=== PATIENT | male | born 1980 | race Caucasian/White ===

== ENCOUNTER 2018-04-05 17:50 | Inpatient (IN) | END 2018-04-11 15:40 | disposition home or self-care (01) | DRG 553 ==

== ENCOUNTER 2019-01-11 10:14 | Emergency (ER) | payer BC ==
[~2019-01-11] VITALS: Ht 177.8 cm; Wt 81.8 kg
[~2019-01-11 10:14] MED LIST: ALLO100T PO; ASPI-831 PO; ATOR10TA65 PO; BENA10TA4 PO; BISA5TAB6 PO; CIPR500S2 PO; Colchicine PO; DOCU-216 PO; IBUP-1541 PO; METO-335 PO; SPIR25TA PO
[2019-01-11 10:16] VITALS: Ht 177.8 cm; Wt 81.8 kg
--- NOTE | 2019-01-11 10:45 | ERD ---
ER Documentation Chief Complaint Chief Complaint bilateral leg /foot pain ;shortness of breath hx of chf and CVA x 2 HPI 38-year-old man referred here for bilateral foot edema times 2-3 days and right knee swelling. Patient also states he has had intermittent shortness of breath and mild dyspnea on exertion for the last week although he has been able to ambulate and denies shortness of breath while at rest or laying down. He denies paroxysmal nocturnal dyspnea. He states about 2 days ago he was diagnosed with "stroke", no residual deficits and states tarik hole was placed in the scalp to "reduce pressure". Patient denies headache or blurry vision, no chest pain, no vomiting or diarrhea, paresis or paresthesias. Patient has pain to the right knee with ambulation but no redness, no fevers or chills. ROS All systems reviewed and are negative except as per history of present illness. Medications Home Meds Active Scripts Naproxen* (Naproxen*) 500 Mg Tablet, 500 MG PO BID PRN for PAIN, #30 TAB Prov:RAVI CONN MD 01/11/19 Reported Medications Esomeprazole Mag Trihydrate (Nexium) 40 Mg Capsule.dr, 40 MG PO DAILY, #30 CAP 01/11/19 Losartan Potassium* (Losartan Potassium*) 25 Mg Tablet, 25 MG PO DAILY, TAB 01/11/19 Carvedilol* (Carvedilol*) 3.125 Mg Tablet, 3.125 MG PO BID, #60 TAB 01/11/19 Atorvastatin* (Atorvastatin*) 40 Mg Tablet, 40 MG PO QHS, #30 TAB 01/11/19 Spironolactone* (Aldactone*) 25 Mg Tablet, 25 MG PO DAILY, #30 TAB 01/11/19 Furosemide* (Furosemide*) 40 Mg Tablet, 40 MG PO DAILY, TAB 01/11/19 Aspirin (Low Dose Aspirin) 81 Mg Tablet., 81 MG PO DAILY, #30 TAB 01/11/19 Allopurinol* (Allopurinol*) 100 Mg Tablet, 100 MG PO DAILY, TAB 01/11/19 Discontinued Scripts Ciprofloxacin (Ciprofloxacin) 500 Mg/5 Ml [facility].rec, 500 MG PO BID, #14 TAB Prov:BRENDA MARTINEZ MD 04/10/18 [Colchicine] 0.6 MG TAB No Conflict Check, 0.6 MG PO BID for 28 Days, #30 Prov:BRENDA MARTINEZ MD 04/10/18 Allopurinol* (Allopurinol*) 100 Mg Tablet, 100 MG PO DAILY for 28 Days, TAB Prov:BRENDA MARTINEZ MD 04/10/18 Docusate Sodium (Dok) 100 Mg Capsule, 100 MG PO Q12H PRN for CONSTIPATION for 14 Days, CAP Prov:BRENDA MARTINEZ MD 04/10/18 Bisacodyl* (Bisacodyl*) 5 Mg Tablet.dr, 5 MG PO DAILY PRN for CONSTIPATION for 14 Days, #14 Prov:BRENDA MARTINEZ MD 04/10/18 Ibuprofen* (Ibuprofen*) 400 Mg Tablet, 400 MG PO Q6H PRN for PAIN OR TEMP ABOVE 38C for 7 Days, #30 TAB Prov:BRENDA MARTINEZ MD 04/10/18 Aspirin (Aspirin) 81 Mg Chew, 81 MG PO DAILY for 28 Days, #30 TAB Prov:BRENDA MARTINEZ MD 04/10/18 Spironolactone* (Aldactone*) 25 Mg Tablet, 12.5 MG PO DAILY for 28 Days, #30 TAB Prov:BRENDA MARTINEZ MD 04/10/18 Metoprolol Succinate* (Toprol XL*) 25 Mg Tab.sr.24h, 25 MG PO DAILY for 28 Days, #30 Prov:BRENDA MARTINEZ MD 04/10/18 Benazepril Hcl* (Benazepril Hcl*) 10 Mg Tablet, 10 MG PO DAILY for 28 Days, #30 TAB Prov:BRENDA MARTINEZ MD 04/10/18 Atorvastatin (Atorvastatin) 10 Mg Tablet, 10 MG PO HS for 28 Days, #30 TAB Prov:BRENDA MARTINEZ MD 04/10/18 Allergies Allergies: Coded Allergies: No Known Allergy (Unverified , 01/11/19) PMhx/Soc History of nonischemic cardiomyopathy and CHF with a left ventricular ejection fraction of 20%, history of methamphetamine and IV drug abuse, hypertension, peripheral edema, history of LV thrombus, pulmonary hypertension, gallstones, recent TIA but patient states he had a tarik hole drilled into the scalp to "reduce pressure" (hydrocephalus?) History of Surgery: No Hx Neurological Disorder: No Hx Respiratory Disorders: No Hx Cardiac Disorders: Yes (CHF) Hx Psychiatric Problems: No Hx Miscellaneous Medical Probl: No Hx Alcohol Use: No (had ETOH abuse stopped in 2014) Hx Substance Use: Yes (meth ) Hx Tobacco Use: No Physical Exam Vitals Vital Signs Date Temp Pulse Resp B/P (MAP) Pulse Ox O2 O2 Flow FiO2 Time Delivery Rate 01/11/19 98.4 110 24 141/78 97 10:16 (99) Physical Exam GENERAL: Well-developed, well-nourished, afebrile HEENT: Moist mucous membranes, pink conjunctiva, no cervical spine tenderness or step-off deformities, NEURO: Alert and oriented 3, cranial nerves II through XII intact bilaterally, pupils equal round reactive to light, no focal deficits or facial asymmetry, sensation intact distally Strength 5/5 in upper and lower extremities bilaterally CARDIAC: Tachycardic and regular, no murmurs rubs or gallops LUNGS: Crackles at the bases, poor entry, no wheezing or stridor ABDOMEN: Soft nontender, no guarding, no rigidity, no rebound, no psoas sign no obturator sign. SKIN: Warm and dry to touch, no abrasions, contusions, or hematomas, no lacerations, no ecchymosis, no target lesions, and without ulcers EXTREMITIES: No clubbing cyanosis. Soft tissue swelling over the right knee consistent with knee effusion, no soft tissue or skin erythema or induration, calves bilaterally symmetrical, feet reveal 1+ pitting edema PSYCH: Normal affect without agitation or irritability Result Diagram: 01/11/19 1106 01/11/19 1106 Results 24 hrs Laboratory Tests Test 01/11/19 11:06 01/11/19 11:40 White Blood Count 13.2 10^3/ul Red Blood Count 5.14 10^6/ul Hemoglobin 13.9 g/dl Hematocrit 43.1 % Mean Corpuscular Volume 83.9 fl Mean Corpuscular Hemoglobin 27.0 pg Mean Corpuscular Hemoglobin Concent 32.3 g/dl Red Cell Distribution Width 14.1 % Platelet Count 219 10^3/UL Mean Platelet Volume 9.5 fl Immature Granulocytes % 1.700 % Neutrophils % 71.9 % Lymphocytes % 15.1 % Monocytes % 10.0 % Eosinophils % 0.9 % Basophils % 0.4 % Nucleated Red Blood Cells % 0.0 /100WBC Immature Granulocytes # 0.220 10^3/ul Neutrophils # 9.5 10^3/ul Lymphocytes # 2.0 10^3/ul Monocytes # 1.3 10^3/ul Eosinophils # 0.1 10^3/ul Basophils # 0.1 10^3/ul Nucleated Red Blood Cells # 0.0 10^3/ul Sodium Level 141 mmol/L Potassium Level 4.3 mmol/L Chloride Level 102 mmol/L Carbon Dioxide Level 27 mmol/L Anion Gap 12 Blood Urea Nitrogen 13 mg/dl Creatinine 0.64 mg/dl Est Glomerular Filtrat Rate mL/min > 60 mL/min Glucose Level 125 mg/dl Uric Acid 6.1 mg/dl Calcium Level 9.2 mg/dl Total Bilirubin 0.6 mg/dl Direct Bilirubin 0.00 mg/dl Indirect Bilirubin 0.6 mg/dl Aspartate Amino Transf (AST/SGOT) 22 IU/L Alanine Aminotransferase (ALT/SGPT) 28 IU/L Alkaline Phosphatase 101 IU/L Troponin I 0.017 ng/ml B-Type Natriuretic Peptide 646 PG/ML Total Protein 7.7 g/dl Albumin 4.1 g/dl Globulin 3.60 g/dl Albumin/Globulin Ratio 1.13 Lipase 202 U/L Urine Color YELLOW Urine Clarity CLEAR Urine pH 7.0 Urine Specific [place] 1.018 Urine Ketones NEGATIVE mg/dL Urine Nitrite NEGATIVE mg/dL Urine Bilirubin NEGATIVE mg/dL Urine Urobilinogen 1+ mg/dL Urine Leukocyte Esterase NEGATIVE Mesfin/ul Urine Hemoglobin NEGATIVE mg/dL Urine Glucose NEGATIVE mg/dL Urine Total Protein NEGATIVE mg/dl Current Medications Medications Dose Sig/Sherri Start Time Status Last (Trade) Ordered Route PRN Stop Time Admin Dose Reason Admin Furosemide 60 mg ONCE ONCE 01/11/19 DC 01/11/19 (Lasix) IV 11:00 11:28 01/11/19 11:01 Ketorolac 15 mg ONCE STAT 01/11/19 DC 01/11/19 Tromethamine IV 10:49 11:28 (Toradol) 01/11/19 10:51 Procedures/MDM IV line was established patient was placed on physical geographer rhythm strip revealed a sinus tachycardia at 100 bpm with upright P and T waves. Patient was afebrile I administered Toradol 15 mg IV x1, Lasix 60 mg IV x1 EKG performed, read by me revealed a normal sinus rhythm at 99 bpm, normal axis, left ventricular conduction delay QRS duration 102 ms, LVH in precordial leads, diffuse T wave inversions, no concerning ST elevations or depressions noted 1 view chest x-ray performed, read by me reveals cardiomegaly, no acute infiltrates, no edema, no pneumothorax CBC was normal, electrolytes normal, liver function tests normal, troponin negative, BNP low. Uric acid level was low, urinalysis negative for infection. Right knee was wrapped with Daniele bandage for comfort and supportive measures. Patient feels much better and vital signs are normal at this time, his pain has improved and he does not exhibit any signs of dyspnea or decompensated heart failure. Patient does have multiple medical conditions but he feels well and has no active or decompensated disease at the moment. His pain is been con trolled and he will be discharged to follow-up with PMD for continued outpatient management Differential diagnoses considered, included but not limited to acute coronary syndrome, pulmonary embolism, aortic dissection, abdominal aortic aneurysm, sepsis, stroke, meningitis, encephalitis, pneumonia, appendicitis, cholecystitis, bowel obstruction, pyelonephritis, nephrolithiasis, cystitis, as well as metabolic, hematologic, and electrolyte abnormalities. As well as abscess, cellulitis, fractures, and dislocations. Patient feels much better at this time, and vital signs are normal, symptoms have improved. I did give strict instructions to return to the ED if symptoms continue or worsen, patient will otherwise follow-up with primary care physician. Patient understood instructions and agreed to plan. Disclaimer: Inadvertent spelling and grammatical errors are likely due to EHR/dictation software use and do not reflect on the overall quality of patient care. Also, please note that the electronic time recorded on this note does not necessarily reflect the actual time of the patient encounter. Departure Diagnosis: Primary Impression: CHF (congestive heart failure) Heart failure type: combined systolic and diastolic Heart failure chronicity: acute Qualified Codes: I50.41 - Acute combined systolic (congestive) and diastolic (congestive) heart failure Additional Impression: Knee effusion, right Condition: Good RAVI CONN MD Jan 11, 2019 10:45
[2019-01-11] MEDS ORDERED: KETOROLAC 15 MG INJ IV STA (10:49)
[2019-01-11] MEDS ORDERED: FUROSEMIDE 40 MG INJ IV ONE (11:00)
[2019-01-11] MEDS ORDERED: ALLO100T PO (11:11)
[2019-01-11] MEDS ORDERED: ASPI81TA52 PO (11:11)
[2019-01-11] MEDS ORDERED: SPIR25TA PO (11:11)
[2019-01-11] MEDS ORDERED: FURO40TA4 PO (11:11)
[2019-01-11] MEDS ORDERED: LOSA25TA12 PO (11:12)
[2019-01-11] MEDS ORDERED: CARV3.1260 PO (11:12)
[2019-01-11] MEDS ORDERED: ATOR40TA68 PO (11:12)
[2019-01-11] MEDS ORDERED: ESOM40CA PO (11:13)
[2019-01-11] MEDS ORDERED: NAPR-688 PO (12:30)
[2019-01-11 12:57] VITALS: BP 126/89; PULSE 97; RESP 18
== END 2019-01-11 12:59 | disposition home or self-care (01) ==
LOC: E/R 10:14
DX: I50.41 Acute combined systolic (congestive) and diastolic (congestive) heart failure (principal); M25.461 Effusion, right knee; I10 Essential (primary) hypertension; Z79.82 Long term (current) use of aspirin; Z86.73 Personal history of transient ischemic attack (TIA), and cerebral infarction without residual deficits
CPT/HCPCS: 36415; 71045; 80053; 81003; 83690; 83880; 84484; 84560; 85025; 93005; 96374; 96375; J1885; J1940; Z7502

== ENCOUNTER 2019-01-20 08:56 | Emergency (ER) | payer BC ==
[~2019-01-20] VITALS: Ht 165.1 cm; Wt 95.0 kg
[~2019-01-20 08:56] MED LIST changes: -ASPI-831 PO; +ASPI81TA52 PO; -ATOR10TA65 PO; +ATOR40TA68 PO; -BENA10TA4 PO; -BISA5TAB6 PO; +CARV3.1260 PO; -CIPR500S2 PO; -Colchicine PO; -DOCU-216 PO; +ESOM40CA PO; +FURO40TA4 PO; -IBUP-1541 PO; +LOSA25TA12 PO; -METO-335 PO; +NAPR-688 PO
[2019-01-20 09:02] VITALS: Ht 165.1 cm; Wt 95.0 kg
[2019-01-20] MEDS ORDERED: FUROSEMIDE 40 MG INJ IV STA (09:36)
[2019-01-20] MEDS ORDERED: DIPHENHYDRAMINE 50 MG INJ IV STA (09:36)
[2019-01-20] MEDS ORDERED: DEXAMETHASONE 10 MG/ML 1 ML INJ IV ONE (10:00)
--- NOTE | 2019-01-20 10:41 | ERD ---
ER Documentation Chief Complaint Chief Complaint Complains of a cough with SOB Hx of CHF HPI 38-year-old male with multiple medical problems including renal insufficiency, CHF secondary to polysubstance abuse and drug induced cardiomyopathy as well as prior stroke. The patient presents with a multitude of different complaints. They include the following. 1. 24 hours of a rash that is urticarial pruritic to the entirety of his body. No fevers or chills during this timeframe. No new medications or detergents noted. He denies any lip swelling or tongue swelling or difficulty breathing. 2. Mild headache that is occipital, not present currently. Gradual in onset. He is concerned about prior stroke and would like CT imaging. He denies any slurred speech or motor deficit. 3. Shortness of breath. He describes mild lower extremity bilateral swelling and mild shortness of breath that is worse when laying flat. Denies any chest pain or pressure. Symptoms are extremely mild. He had recent hospitalization for CHF exacerbation. The patient is currently taking Lasix. He describes compliance with his medication regimen. ROS All systems reviewed and are negative except as per history of present illness. Medications Home Meds Active Scripts Hydroxyzine Hcl* (Atarax*) 25 Mg Tab, 25 MG PO Q6H PRN for ITCHING, #20 TAB Prov:RAKESH WILLIS MD 01/20/19 Reported Medications Esomeprazole Mag Trihydrate (Nexium) 40 Mg Capsule.dr, 40 MG PO DAILY, #30 CAP 01/11/19 Losartan Potassium* (Losartan Potassium*) 25 Mg Tablet, 25 MG PO DAILY, TAB 01/11/19 Carvedilol* (Carvedilol*) 3.125 Mg Tablet, 3.125 MG PO BID, #60 TAB 01/11/19 Atorvastatin* (Atorvastatin*) 40 Mg Tablet, 40 MG PO QHS, #30 TAB 01/11/19 Spironolactone* (Aldactone*) 25 Mg Tablet, 25 MG PO DAILY, #30 TAB 01/11/19 Furosemide* (Furosemide*) 40 Mg Tablet, 40 MG PO DAILY, TAB 01/11/19 Aspirin (Low Dose Aspirin) 81 Mg Tablet.dr, 81 MG PO DAILY, #30 TAB 01/11/19 Allopurinol* (Allopurinol*) 100 Mg Tablet, 100 MG PO DAILY, TAB 01/11/19 Discontinued Scripts Naproxen* (Naproxen*) 500 Mg Tablet, 500 MG PO BID PRN for PAIN, #30 TAB Prov:RAVI CONN MD 01/11/19 Allergies Allergies: Coded Allergies: No Known Allergy (Unverified , 01/20/19) PMhx/Soc History of Surgery: No Anesthesia Reaction: No Hx Neurological Disorder: No Hx Respiratory Disorders: No Hx Cardiac Disorders: Yes (CHF) Hx Psychiatric Problems: No Hx Miscellaneous Medical Probl: No Hx Alcohol Use: No (had ETOH abuse stopped in 2014) Hx Substance Use: Yes (meth ) Hx Tobacco Use: No Smoking Status: Never smoker FmHx Family History: No diabetes Physical Exam Vitals Vital Signs Date Temp Pulse Resp B/P (MAP) Pulse Ox O2 O2 Flow FiO2 Time Delivery Rate 01/20/19 98.2 88 18 112/67 98 Room Air 12:27 (82) 01/20/19 90 18 105/79 98 Room Air 11:00 (88) 01/20/19 98 18 136/98 98 Room Air 09:33 (111) 01/20/19 98.7 104 20 122/72 95 09:02 (89) Physical Exam General: Well developed, well nourished, no acute distress Head: Normocephalic, atraumatic. Eyes: Pupils equally reactive, EOM intact ENT: Moist mucous membranes, no lip/tongue swelling Neck: Supple, no lymphadenopathy Respiratory: Lungs clear bilaterally, no distress, no rales at the bases bilaterally Cardiovascular: RRR, no murmurs, rubs, or gallops Abdominal: Soft, non-tender, non-distended, no peritoneal signs : Deferred MSK: No edema, no unilateral swelling, 5/5 strength Neurologic: Alert and oriented, moving all extremities, normal speech, no focal weakness, no cerebellar signs Skin: Urticarial rash to the extremities and trunk Psych: Normal mood Result Diagram: 01/20/1948 01/20/1947 Results 24 hrs Laboratory Tests Test 01/20/19 09:48 White Blood Count 16.7 10^3/ul Red Blood Count 5.62 10^6/ul Hemoglobin 15.4 g/dl Hematocrit 46.7 % Mean Corpuscular Volume 83.1 fl Mean Corpuscular Hemoglobin 27.4 pg Mean Corpuscular Hemoglobin Concent 33.0 g/dl Red Cell Distribution Width 14.1 % Platelet Count 416 10^3/UL Mean Platelet Volume 9.3 fl Immature Granulocytes % 2.000 % Neutrophils % 84.0 % Lymphocytes % 11.6 % Monocytes % 1.7 % Eosinophils % 0.2 % Basophils % 0.5 % Nucleated Red Blood Cells % 0.0 /100WBC Immature Granulocytes # 0.340 10^3/ul Neutrophils # 14.0 10^3/ul Lymphocytes # 1.9 10^3/ul Monocytes # 0.3 10^3/ul Eosinophils # 0.0 10^3/ul Basophils # 0.1 10^3/ul Nucleated Red Blood Cells # 0.0 10^3/ul Sodium Level 141 mmol/L Potassium Level 4.0 mmol/L Chloride Level 104 mmol/L Carbon Dioxide Level 24 mmol/L Anion Gap 13 Blood Urea Nitrogen 17 mg/dl Creatinine 0.82 mg/dl Est Glomerular Filtrat Rate mL/min > 60 mL/min Glucose Level 151 mg/dl Calcium Level 9.2 mg/dl Troponin I < 0.012 ng/ml B-Type Natriuretic Peptide 365 PG/ML Current Medications Medications Dose Sig/Sherri Start Time Status Last (Trade) Ordered Route PRN Stop Time Admin Dose Reason Admin Furosemide 40 mg ONCE STAT 01/20/19 DC 01/20/19 (Lasix) IV 09:36 09:44 01/20/19 09:41 50 mg ONCE STAT 01/20/19 DC 01/20/19 Diphenhydrami IV 09:36 09:44 ne HCl 01/20/19 09:41 (Benadryl) 10 mg ONCE ONCE 01/20/19 DC 01/20/19 Dexamethasone IV 10:00 09:44 (Decadron) 01/20/19 10:01 Procedures/MDM EKG, MONITORS, & DIAGNOSTIC IMAGING: EKG: I reviewed and interpreted a 12-lead EKG. Rhythm: Normal sinus rhythm ST Changes: No contiguous ST segment elevations T waves: No contiguous T wave inversions Impression: No evidence of acute cardiac ischemia Chest x-ray: I reviewed and interpreted a 1 view of the chest Mediastinum: No enlargement Cardiac silhouette: cardiomegaly Airspace: Clear lung rai bilaterally without evidence of pneumothorax Bones: No evidence of fracture CTB IMPRESSION: 1. No acute intracranial abnormality identified. 2. Interval resolution of previously noted right frontal lobe parenchymal hematoma and intraventricular hemorrhage. 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 3. Interval evolution of bilateral cerebellar infarcts with encephalomalacic changes of the left inferior and right superior cerebellar hemispheres. LAB INTERPRETATION: I reviewed the laboratory testing and it shows negative troponin, borderline BNP of 300s MEDICAL DECISION MAKING: Patient presents with multiple issues as documented above. His urticaria is idiopathic without evidence of anaphylaxis. Appropriate treatment would include antihistamines and steroids. The patient shortness of breath is likely consistent with his underlying cardia myopathy. No evidence of significant volume overload. This is likely a stable baseline issue for the patient would benefit from gentle diuresis. The patient additionally describes a headache that is consistent with chronic headaches. He is very concerned about intracranial process given his history and would like CT imaging. He has no headache currently has a nonfocal neurologic exam. ER COURSE: * The patient's allergic reaction was treated with antihistamine and Decadron. A complete resolution of symptoms. No evidence of anaphylaxis. Outpatient treatment with antihistamine appropriate. Decadron should last 4-5 days. No indication for repeat at this time. * The patient's shortness of breath is consistent with baseline cardiomyopathy without evidence of exacerbation. He was given Lasix. His chest x-ray and BMP are reassuring and outpatient therapy and follow-up appropriate. The patient is optimized on medications. * Headache is not present. CT brain shows interval improvement. * The patient can be safely discharged home as documented above. CONSULTATION: None DISPOSITION PLAN: The patient does not have an identifiable emergent medical condition that warrants inpatient hospitalization at this time. The patient is deemed safe for discharge with outpatient follow-up. We discussed follow up with the patient's primary care doctor within 24 to 48 hours as needed. We also discussed return to the emergency room for worsening symptoms or worsening condition. Outpatient referral: None required Discharge Medications: Atarax Departure Diagnosis: Primary Impression: Idiopathic urticaria Additional Impressions: Shortness of breath History of cardiomyopathy Headache Headache type: unspecified Headache chronicity pattern: acute headache Intractability: not intractable Qualified Codes: R51 - Headache Condition: Stable RAKESH WILLIS MD Jan 20, 2019 10:41
[2019-01-20] MEDS ORDERED: HYDR-842 PO (12:19)
[2019-01-20 12:27] VITALS: BP 112/67; PULSE 88; RESP 18
== END 2019-01-20 12:29 | disposition home or self-care (01) ==
LOC: E/R 08:56
DX: L50.1 Idiopathic urticaria (principal); R06.02 Shortness of breath; R51 Headache; I50.9 Heart failure, unspecified; Z79.82 Long term (current) use of aspirin; Z86.79 Personal history of other diseases of the circulatory system
CPT/HCPCS: 36415; 70450; 71045; 80048; 83880; 84484; 85025; 93005; 96374; 96375; J1100; J1200; J1940; Z7502